=== PATIENT | female | born 1975 | race Caucasian/White ===

== ENCOUNTER 2018-09-13 12:26 | Emergency (ER) | payer OTHER, MEDICAID ==
[2018-09-13] MEDS ORDERED: AZITHROMYCIN 250 MG TAB PO (15:00)
[2018-09-13] MEDS ORDERED: CEFTRIAXONE 250 MG INJ IM (15:00)
== END 2018-09-13 15:22 | disposition home or self-care (01) ==
LOC: FTE 12:26
DX: J06.9 Acute upper respiratory infection, unspecified (principal)
CPT/HCPCS: 71046; 93005; 99283-25